=== PATIENT | female | born 1980 | race Caucasian/White ===

== ENCOUNTER 2020-02-19 12:25 | Outpatient (CLI) | payer BC, SELFPAY ==
--- NOTE | ~2020-02-19 | MMUS_ITS ---
EXAMINATION: MM diagnostic radha BI w jeni, US breast RT limited HISTORY: Right breast lump TECHNIQUE: Additional 3-D tomosynthesis images of the breasts were performed and synthetic 2-D images were generated. CAD analysis was submitted and interpreted. High resolution right breast ultrasound was performed. COMPARISON: Comparison to multiple prior studies sequentially, with oldest reviewed study dated 08/2009. BREAST PARENCHYMAL COMPOSITION: The breasts are heterogenously dense, which may obscure small masses FINDINGS: MAMMOGRAPHIC FINDINGS: There are no suspicious masses, calcifications or architectural distortion in either breast to sugges t malignancy. ULTRASOUND: Right breast ultrasound: At 12:00 there is a cyst measuring 1.4 x 1.2 x 0.4 cm. No suspicious sonogra phic lesions to suggest malignancy. IMPRESSION: 1. No evidence for malignancy in either breast. 2. Routine yearly screening mammogram and regular clinical breast examination are recommended. BI-RADS CATEGORY 2 - BENIGN FINDINGS Reviewed, dictated and finalized at location A. IMPRESSION: 1. No evidence for malignancy in either breast. 2. Routine yearly screening mammogram and regular clinical breast examination a re recommended. BI-RADS CATEGORY 2 - BENIGN FINDINGS
== END 2020-02-19 12:26 | disposition home or self-care (01) ==
PROVIDERS: PCP Physician Assistant; Referring Provider Obstetrics & Gynecology; Visit Provider Physician Assistant
DX: N60.19 Diffuse cystic mastopathy of unspecified breast (principal)
CPT/HCPCS: 76642; 77062; 77066; G0279

== ENCOUNTER 2021-02-26 12:57 | Outpatient (CLI) | payer BC, SELFPAY ==
--- NOTE | ~2021-02-26 | MM_ITS ---
EXAMINATION: MM diagnostic radha BI w jeni HISTORY: History of benign breast masses. TECHNIQUE: Additional 3-D tomosynthesis images of the breasts were performed and synthetic 2-D images were generated. CAD analysis was submitted and interpreted. COMPARISON: Comparison to multiple prior studies sequentially, with oldest reviewed study dated 06/17. BREAST PARENCHYMAL COMPOSITION: The breasts are extremely dense, which lowers the sensitivity of mamm ography. FINDINGS: There are no new suspicious masses, calcifications or architectural distortion in either br east to suggest malignancy. IMPRESSION: 1. No evidence for malignancy in either breast. 2. Routine yearly screening mammogram and regular clinical breast examination are recommended. BI-RADS Category 1: Negative Reviewed, dictated and finalized at location A. IMPRESSION: 1. No evidence for malignancy in either breast. 2. Routine yearly screening mammogram and regular clinical breast examination a re recommended. BI-RADS Category 1: Negative
== END 2021-02-26 12:58 | disposition home or self-care (01) ==
LOC: ANHIMG 12:58
PROVIDERS: PCP Physician Assistant; Visit Provider Obstetrics & Gynecology
DX: R92.8 Other abnormal and inconclusive findings on diagnostic imaging of breast (principal)
CPT/HCPCS: 77062; 77066; G0279

== ENCOUNTER 2021-06-22 09:46 | Outpatient (CLI) | payer BC, SELFPAY ==
--- NOTE | ~2021-06-22 | XR_ITS ---
EXAMINATION: XR foot LT min 3V DATE: 06/22/2021 10:07 INDICATION: Left foot injury with pain after stubbing the fourth toe. TECHNIQUE: Dorsoplantar, two oblique and lateral views of the left foot were obtained. COMPARISON: None. FINDINGS: Suggestion of minimal callus formation surrounding a nondisplaced oblique extra-articular diaphyseal fracture of the left fourth proximal phalanx. Alignment remains near-anatomic. No other fractures manoj ntified. 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 Soft tissue swelling about the fourth toe. IMPRESSION: 1. Likely healing nondisplaced extra articular fracture of the left fourth proximal phalanx. Reviewed, dictated and finalized at location B. ICATIONS SALES REPRESENTATIVE IMPRESSION: 1. Likely healing nondisplaced extra articular fracture of the left fourth prox imal phalanx.
== END 2021-06-22 09:47 | disposition home or self-care (01) ==
LOC: ANHIMG 09:53
PROVIDERS: PCP Physician Assistant; Visit Provider Physician Assistant
DX: S99.022A Salter-Harris Type II physeal fracture of left calcaneus, initial encounter for closed fracture (principal); X58.XXXA Exposure to other specified factors, initial encounter
CPT/HCPCS: 73630

== ENCOUNTER 2022-04-08 09:34 | Outpatient (CLI) | payer BC, SELFPAY ==
--- NOTE | ~2022-04-08 | MM_ITS ---
EXAMINATION: MM screening [facility] BI w jeni HISTORY: Screening mammogram TECHNIQUE: Craniocaudal and mediolateral oblique 3-D tomosynthesis images were obtained and synthetic 2-D images were generated. CAD analysis was submitted and interpreted. COMPARISON: 02/26/2021, 02/19/2020, 04/06/2018 BREAST PARENCHYMAL COMPOSITION: The breasts are heterogeneously dense, which may obscure small masses . FINDINGS: There is no suspicious mass, calcification, or architectural distortion to suggest malignan cy in either breast. There has been no suspicious interval change. IMPRESSION: 1. No mammographic evidence of malignancy. 2. Recommend routine screening mammography in one year. BI-RADS Category 1: Negative Reviewed, dictated and finalized at location A.
== END 2022-04-08 09:35 | disposition home or self-care (01) ==
PROVIDERS: PCP Physician Assistant; Visit Provider Obstetrics & Gynecology
DX: Z12.31 Encounter for screening mammogram for malignant neoplasm of breast (principal)
CPT/HCPCS: 77063; 77067

== ENCOUNTER 2023-06-17 10:47 | Outpatient (CLI) | payer BC, SELFPAY ==
--- NOTE | ~2023-06-17 | MMUS_ITS ---
EXAMINATION: MM diagnostic radha BI w jeni, US breast BI complete HISTORY: Right breast lump TECHNIQUE: Bilateral full field and right spot ML, MLO and CC 3-D tomosynthesis images were performed and synthetic 2-D images were generated. CAD analysis was submitted and interpreted. High resolution complete bilateral breast ultrasound examination including all 4 quadrants and subareolar areas was performed. COMPARISON: 04/08/2022 bilateral screening mammogram 02/26/2021 bilateral diagnostic mammogram BREAST PARENCHYMAL COMPOSITION: The breasts are extremely dense, which lowers the sensitivity of mamm ography. FINDINGS: MAMMOGRAPHIC FINDINGS: There is clinical complaint of right 12:00 breast lump. There is fibroglandular asymmetry bilaterally. There is extremely dense fibroglandular stroma which may obscure masses anywhere in either breast. Bi lateral complete breast ultrasound examination was performed. No malignant calcification or skin thickening or retraction is detected. ULTRASOUND: No suspicious solid lesion or suspicious shadowing of either breast is detected. The foll owing benign lesions are noted: . Right breast: 12:00 3 cm from nipple: 9 x 5 x 11 mm minimally septated cyst with through transmission and posterior enhancement. 12:00 1 cm from nipple: Minimally septated 7 x 6.5 x 7 mm cyst 5:00 2 cm from nipple: Parallel circumscribed probable septated cyst or other benign process, without internal vascularity or posterior shadowing measuring 5.8 x 2.5 x 4.7 mm 7:00 1 cm from nipple: Parallel circumscribed 5.8 x 2.6 x 4.5 mm similar probable septated cyst or ot her benign process, without internal vascularity or posterior shadowing 9:00 3 cm from nipple: Parallel circumscribed 8.7 x 4 x 9.6 mm cyst Left breast: 2:00 1 cm from nipple: 8 x 4.4 x 8.6 mm simple cyst 9:00 2 cm from nipple: 7.4 x 5.2 x 6.1 mm simple cyst 9:00 1 cm from nipple: 8 x 6.4 x 6.7 mm cyst IMPRESSION: 1. Benign findings 2. Routine annual mammographic screening is recommended BI-RADS Category 2: Benign finding(s). Reviewed, dictated and finalized at location A. INER HELPER IMPRESSION: 1. Benign findings 2. Routine annual mammographic screening is recommended BI-RADS Category 2: Benign finding(s).
== END 2023-06-17 10:48 | disposition home or self-care (01) ==
PROVIDERS: Visit Provider Obstetrics & Gynecology
DX: N63.10 Unspecified lump in the right breast, unspecified quadrant (principal)
CPT/HCPCS: 76641; 77062; 77066; G0279

== ENCOUNTER 2024-07-17 08:19 | Outpatient (CLI) | payer BC, SELFPAY ==
--- NOTE | ~2024-07-17 | MM_ITS ---
EXAMINATION: MM screening [facility] BI w jeni HISTORY: Screening mammogram TECHNIQUE: Craniocaudal and mediolateral oblique 3-D tomosynthesis images were obtained and synthetic 2-D images were generated. CAD analysis was submitted and interpreted. COMPARISON: 06/17/2023, 04/08/2022, 02/26/2021, 02/19/2020 BREAST PARENCHYMAL COMPOSITION:Dense: The breasts are extremely dense, which lowers the sensitivity o f mammography. FINDINGS: Suspected small developing mass at the upper, slightly outer right breast, anterior third. Stable parenchymal appearance of the left breast. No suspicious microcalcifications. IMPRESSION: Suspected small developing right breast mass, as above. Spot compression views, and possibly ultraso und, are recommended for further evaluation. BI-RADS Category 0: Incomplete: Needs additional imaging evaluation. Reviewed, dictated and finalized at location . UNICATION CENTER COORDINATOR IMPRESSION: Suspected small developing right breast mass, as above. Spot compression views , and possibly ultrasound, are recommended for further evaluation. BI-RADS Category 0: Incomplete: Needs additional imaging evaluation.
== END 2024-07-17 08:20 | disposition home or self-care (01) ==
PROVIDERS: Visit Provider Obstetrics & Gynecology
DX: Z12.31 Encounter for screening mammogram for malignant neoplasm of breast (principal); R92.8 Other abnormal and inconclusive findings on diagnostic imaging of breast
CPT/HCPCS: 77063; 77067

== ENCOUNTER 2024-08-14 10:24 | Outpatient (CLI) | payer BC, SELFPAY ==
--- NOTE | ~2024-08-14 | MMUS_ITS ---
EXAMINATION: MM diagnostic radha RT w jeni, US breast RT complete HISTORY: Follow-up right breast masses TECHNIQUE: Additional 3-D tomosynthesis images of the right breast were performed and synthetic 2-D i mages were generated. CAD analysis was submitted and interpreted. High resolution complete right roni st ultrasound was performed. COMPARISON: Comparison to multiple prior studies sequentially, with oldest reviewed study dated 04/06. BREAST PARENCHYMAL COMPOSITION: Dense: The breasts are extremely dense, which lowers the sensitivity of mammography. FINDINGS: MAMMOGRAPHIC FINDINGS: There are multiple small subcentimeter obscured masses in the upper central aspect of the right breas t, anterior third. There are no suspicious calcifications or architectural distortion. ULTRASOUND: Complete US of all 4 quadrants of the breast/s and retroareolar region was reviewed. There are multip le cysts of the right breast. At 1:00, 5 cm from the nipple there is an antiparallel hypoechoic mass with posterior acoustic enhancement measuring 5 x 4 x 4 mm. No internal vascularity. At 1:00 near the nipple there is a slightly irregular shaped antiparallel hypoechoic mass with internal echoes and in ternal vascularity. No posterior features. This mass measures 6 x 5 x 4 mm. IMPRESSION: 1. Suspicious mass of the right breast at 1:00 near the nipple measuring 6 mm. Ultrasound-guided righ t breast biopsy recommended. 2. Likely benign right breast mass at 1:00, 5 cm from the nipple measuring 5 mm. 6 month follow-up Li mited right breast ultrasound recommended. BI-RADS category 4, suspicious findings. Reviewed, dictated and finalized at location A. RN IMPRESSION: 1. Suspicious mass of the right breast at 1:00 near the nipple measuring 6 mm. Ultrasound-guided right breast biopsy recommended. 2. Likely benign right breast mass at 1:00, 5 cm from the nipple measuring 5 mm . 6 month follow-up Limited right breast ultrasound recommended. BI-RADS category 4, suspicious findings.
--- OUTSIDE RECORDS SUMMARY | 2024-08-14 11:27 | XMS_ITS | Patient Health Summary ---
Author Organization [facility] Address [address] [place] [address] Care Team Providers Care Mold Blower Name Role Phone Unavailable Primary Care Provider Unavailabl e Note from [facility],non-owned Affiliates and Associated Physician Practices is amultiple site organization consisting of ambulatory clinics and hospital sitesin [place], [place], [place] and [place]. This disclosure is being madepursuant to the Care Everywhere program and may not contain all information available regarding this patient. Last updated 18.[facility] Allergies No known active allergies Medications * Be aware that medications may not be up to date on this document. Alwaysverify current medications with the patient. * ondansetron (ZOFRAN) 4 MG tablet(Started 10/02/2010) Take 1 Tab by mouth every 4 hours as needed for Nausea/Vomiting. Active Problems Problem Noted Date Diagnosed Date Abdominal pain, right upper quadrant 10/02/2010 Social History Tobacco Use Types Packs/Day Years Used Date Smoking Tobacco: Never Alcohol Use Standard Drinks/Week Comments Yes 0 (1 standard drink = 0.6 oz pur e alcohol) occasional Sex and Gender Information Value Date Recorded Sex Assigned at Not on file Gender Identity Not on file Sexual Orientation Not on file Last Filed Vital Signs Vital Sign Reading Time Taken Comments Blood Pressure 104/79 10/02/2010 7:11 PM CDT Pulse 84 10/02/2010 7:11 PM CDT Temperature 36.6 ??C (97.8 ??F) 10/02/2010 4:03 PM CD T Respiratory Rate - - Oxygen Saturation 100% 10/02/2010 4:03 PM CDT Inhaled Oxygen Concentration - - Weight 62.6 kg (138 lb) 10/02/2010 4:03 PM CDT Height 172.7 cm (5' 8 ) 10/02/2010 4:03 PM CDT Body Mass Index 20.98 10/02/2010 4:03 PM CDT Procedures * LIPASE BLOOD(Performed 10/02/2010) * COMPREHENSIVE METABOLIC PANEL(Performed 10/02/2010) * CBC W AUTO DIFFERENTIAL(Performed 10/02/2010) * US ABDOMEN LIMITED(Performed 10/02/2010) * HCG URINE QUALITATIVE(Performed 10/02/2010) * URINALYSIS REFLEX MICROSCOPIC REFLEX CULTURE(Performed 10/02/2010) * CULTURE URINE(Performed 10/02/2010) * CULTURE URINE(Performed 10/02/2010) Results * (ABNORMAL) CBC W AUTO DIFFERENTIAL (10/02/2010 6:30 PM CDT) WBC 17.3(H) 4.0 - 11.0 K/CUMM [facility] RBC 4.47 3.80 - 5.30 M/CUMM [facility] Hemoglobin 13.4 11.7 - 15.5 gm/dL [facility] Hematocrit 39.1 36 - 46 % [facility] MCV 87.5 80 - 99 fL [facility] MCH 30.0 26 - 34 pg [facility] MCHC 34.3 32 - 36 gm/dL [facility] RDW 12.8 11.5 - 14.5 % [facility] Platelet Count 214 150 - 400 K/CUMM [facility] Granulocytes % 80.8(H) 43 - 70 % [facility] Lymphocytes % 13.3(L) 22 - 41 % [facility] Monocytes % 5.2 2 - 13 % [facility] Eosinophils % 0.5 0 - 6 % [facility] Basophils % 0.2 0 - 2 % [facility] Granulocytes Absolute 14.0(H) 1.7 - 7.7 [facility] Lymphocytes Absolute 2.3 1.0 - 3.0 [facility] Monocytes Absolute 0.9 0.2 - 1.0 [facility] Eosinophils Absolute 0.1 0.0 - 0.4 [facility] Basophils Absolute 0.0 0.0 - 0.1 [facility] BLOOD SPECIMEN / Unknown 10/02/2010 6:30 PM CDT 10/02/2010 6:36 PM CDT Narrative [facility] - 10/02/2010 6:39 PM CDT Perform for patients with UPPER abd* Drake Wong MD LAB - HEMATOLOGY ORD ERABLES [facility] [address] [place] [address] * (ABNORMAL) COMPREHENSIVE METABOLIC PANEL (10/02/2010 6:30 PM CDT) [facility] Glucose 83. 65 - 105 mg/dL [facility] BUN 14. 7 - 18 mg/dL [facility] Creatinine .48(L) 0.50 - 1.05 mg/dL [facility] BUN/Creatinine Ratio 28.5 [facility] Sodium 142. 137 - 145 mmol/L [facility] Potassium 3.6 3.6 - 5.0 mmol/L [facility] Chloride 104. 98 - 107 mmol/L [facility] CO2 26. 22 - 31 mmol/L [facility] Anion Gap 12. [facility] Calcium 9.3 8.4 - 10.6 mg/dL [facility] Alkaline Phosphatase 83. 38 - 126 U/L [facility] ALT 9. 7 - 56 U/L [facility] AST 23. 5 - 40 U/L [facility] Bilirubin Total .4 0.2 - 1.3 mg/dL [facility] Protein Total 8.6(H) 6.3 - 8.2 gm/dL [facility] Albumin 4.6 3.9 - 5.0 gm/dL [facility] eGFR by MDRD >60 SEE BELOW ml/min/1.7 3 m2 [facility] Comment: >60 Normal Chronic Disease <60 Renal Failure <15 BLOOD SPECIMEN / Unknown 10/02/2010 6:30 PM CDT 10/02/2010 6:36 PM CDT Narrative [facility] - 10/02/2010 6:50 PM CDT Perform for patients with UPPER abd* Drake Wong MD LAB - CHEMISTRY DORY SUADBONI [facility] [address] [place] [address] * LIPASE BLOOD (10/02/2010 6:30 PM CDT) Lipase 89. 23 - 208 U/L [facility] BLOOD SPECIMEN / Unknown 10/02/2010 6:30 PM CDT 10/02/2010 6:36 PM CDT Narrative [facility] - 10/02/2010 6:50 PM CDT Perform for patients with UPPER abd* Drake Wong MD LAB - CHEMISTRY DORY [place]AR[place] Performing Organization Address [facility]/ZIP Co de Phone Number [facility] [address] [place] [address] * US ABDOMEN LIMITED (GB/liver/pancreas) (10/02/2010 5:15 PM CDT) Anatomical Region Laterality Modality Abdomen Ultrasound 10/02/2010 5:17 PM CDT Impressions 10/02/2010 5:17 PM CDT Gallstones without imaging evidence of cholecystitis. CBD upper limits of normal for size but no sonographic evidence of choledocholithiasis. Narrative 10/02/2010 5:17 PM CDT Upper abdominal ultrasound, limited. COMPARISON: No relevant examinations. HISTORY: Right upper quadrant pain ?? TECHNIQUE: Real-time ultrasound of the upper abdomen with DICOM image capture performed by medical lab technologist. FINDINGS: Liver is without suspicious mass or intra hepatic biliary dilatation. Liver echotexture is normal. Common bile duct size is 6 mm, upper limits of normal for age. Distal CBD is not imaged due to bowel gas. No ascites. Four to 5 small mobile gallstones without wall thickening, pericholecystic fluid or sonographic Edmond sign. Visualized portions of the pancreas are grossly normal. No right kidney hydronephrosis. Procedure Note Drake Rossi MD - 10/02/2010 Upper abdominal ultrasound, limited. COMPARISON: No relevant examinations. HISTORY: Right upper quadrant pain TECHNIQUE: Real-time ultrasound of the upper abdomen with DICOM image capture performed by medical lab technologist. FINDINGS: Liver is without suspicious mass or intra hepatic biliary dilatation. Liver echotexture is normal. Common bile duct size is 6 mm, upper limits of normal for age. Distal CBD is not imaged due to bowel gas. No ascites. Four to 5 small mobile gallstones without wall thickening, pericholecystic fluid or sonographic Edmond sign. Visualized portions of the pancreas are grossly normal. No right kidney hydronephrosis. IMPRESSION Gallstones without imaging evidence of cholecystitis. CBD upper limits of normal for size but no sonographic evidence of choledocholithiasis. Pascale Major PA-C US ORDERABLES * (ABNORMAL) URINALYSIS ROUTINE W/REFLEX TO CULTURE (10/02/2010 4:52 PM CDT) Source CleanCatch [facility] Color UA YELLOW [facility] Character UA CLEAR [facility] Specific Cobalt UA 1.024 1.002 - 1.030 [facility] pH UA 6.5 5.0 - 8.0 [facility] Protein UA TRACE NEG [facility] Blood UA NEGATIVE NEG [facility] Leukocyte UA 1+ NEG [facility] Nitrite UA NEGATIVE NEG [facility] Glucose UA NEGATIVE NEG [facility] Ketone UA NEGATIVE NEG [facility] Bilirubin UA NEGATIVE NEG [facility] Urobilinogen UA 1.0 0.1 - 1.0 E.U./dl [facility] WBC UA 5-10(H) 0 - 4 /HPF [facility] RBC UA 2-5 0 - 5 /HPF [facility] Epithelial Cell UA 5-10(H) 0 - 6 /HPF [facility] Mucus UA Trace none [facility] Bacteria UA 1+ none [facility] Casts UA 2-5 Hyaline /LPF [facility] Crystals UA NOT DETECTED /HPF [facility] Yeast UA NOT DETECTED none [facility] Culture Urine Culture to be done per protocol. [facility] URINE SPECIMEN OBTAINED BY CLEAN CATCH PROCEDURE / Unknown 10/02/2010 4:52 PM CDT 10/02/2010 5:05 PM CDT Drake Wong MD LAB - URINALYSIS ORD ERABLES Performing Organization Address [facility] Co de Phone Number [facility] [address] [place] [address] * HCG URINE QUALITATIVE (10/02/2010 4:52 PM CDT) HCG Qual Urine Negative Negative [facility] URINE / Unknown 10/02/2010 4 :52 PM CDT 10/02/2010 6:02 PM CDT Pascale Major PA-C LAB - URINALYSI S ORDERABLES Performing Organization Address [facility] Co de Phone Number [facility] [address] [place] [address] * CULTURE URINE (10/02/2010 4:52 PM CDT) Report [facility] Comment:Final - CULTURE URIN E - <1000 CFU/mL (No growth) URINE SPECIMEN OBTAINED BY CLEAN CATCH PROCEDURE / Unknown 10/02/2010 4:52 PM CDT Pascale Major PA-C LAB - MICROBIOL OGY ORDERABLES Performing Organization Address [facility] Co de Phone Number [facility] [address] [place] [address]
--- OUTSIDE RECORDS SUMMARY | 2024-08-14 11:27 | XMS_ITS | Clinical Summary ---
Author Organization [facility] [employer] Address [address] [place] [address] Care Team Providers Care Fur Weigher Name Role Phone Unavailable Primary Care Provider Unavailabl e Source Comments [facility],non-owned Affiliates and Associated Physician Practices is amultiple site organization consisting of ambulatory clinics and hospital sitesin [place], [place], [place] and [place]. This disclosure is being madepursuant to the Care Everywhere program and may not contain all information available regarding this patient. Last updated 18.[facility] [employer] Allergies No known active allergies Medications * Be aware that medications may not be up to date on this document. Alwaysverify current medications with the patient. Medication Sig Dispensed Refills Start Date End Date Status ondansetron (ZOFRAN) 4 MG tablet Take 1 Tab by mouth every 4 hours as needed for Nausea/Vomiting. 10 Tab 0 10/02/2010 Active Active Problems Problem Noted Date Diagnosed Date [...] Mass Index 20.98 10/02/2010 4:03 PM CDT Plan of Treatment Health Maintenance Due Date Last Done Comments COLOGUARD (AGES 45-75) - COL ON CA SCREENING 1978 COLON MONITORING 1978 COLONOSCOPY - COLON CA SCREENING 1978 CT COLONOGRAPHY - COLON CA SCREENING 1978 Colorectal Cancer Screening 1978 FIT - COLON CA SCREENING 1978 FLEX SIG - COLON CA SCREENING 1978 LIPID TESTING 1978 MAMMOGRAM 1978 PAP SMEAR 1978 HIV SCREENING 1993 HEPATITIS C SCREENING 05/04/1996 DTAP/TDAP/TD VACCINES (1 - Tdap) 1997 HEPATITIS B VACCINE (1 of 3 - 19+ 3-dose series) 1997 COVID-19 VACCINE (2023-2 5 season) 2024 INFLUENZA VACCINE (#1) 2024 DEPRESSION SCREENING 07/18/2024 ZOSTER VACCINE (1 of 2) 2028 HIB VACCINE Aged Out No longer eligi ble based on patient's age to complete this topic HPV VACCINE Aged Out No longer eligi ble based on patient's age to complete this topic MENINGOCOCCAL (Group B) VACCINE Aged Out No longer eligible based on patient's age to complete this topic MENINGOCOCCAL VACCINE Aged Out No rickie daisy eligible based on patient's age to complete this topic PNEUMOCOCCAL VACCINE Aged Out No long er eligible based on patient's age to complete this topic
--- OUTSIDE RECORDS SUMMARY | 2024-08-14 11:27 | XMS_ITS | Referral Summary ---
Author Organization [facility] [employer] Address [address] [place] [address] Care Team Providers Care Server Systems Administrator Name Role Phone Unavailable Primary Care Provider Unavailabl e Source Comments [facility],non-owned Affiliates and Associated Physician Practices is amultiple site organization consisting of ambulatory clinics and hospital sitesin [place], [place], [place] and [place]. This disclosure is being madepursuant to the Care Everywhere program and may not contain all information available regarding this patient. Last updated 18.[facility] [employer] Allergies No known active allergies Medications * [...] 10/02/2010 4:03 PM CDT Plan of Treatment Not on file
== END 2024-08-14 10:25 | disposition home or self-care (01) ==
PROVIDERS: Visit Provider Obstetrics & Gynecology
DX: N63.10 Unspecified lump in the right breast, unspecified quadrant (principal)
CPT/HCPCS: 76641; 77061; 77065; G0279